=== PATIENT | male | born 1980 | race Caucasian/White ===

== ENCOUNTER → 2016-12-11 | Outpatient (CLI) | payer SELFPAY ==
--- NOTE | 2016-12-11 18:15 | RAD ---
PROCEDURE: Foot,Left 3 Views CLINICAL HISTORY: FOOT PAIN INDICATION: Left foot pain COMPARISON: None . TECHNIQUE: 3.0 Views of the left foot were done. FINDINGS: There is no evidence of acute fractures or dislocation involving the bones of the left foot. There is no evidence of any periosteal reactions. There is mild degenerative change at the level of the first metatarsophalangeal joint. There is a tiny plantar calcaneal spur. There is intact calcification at the insertion site of the Achilles tendon the posterior calcaneus There is no evidence of bony tarsal coalition. The soft tissues are radiographically unremarkable. There is no visualization of any radiopaque foreign bodies in the visualized soft tissues. IMPRESSION: There is mild degenerative change at the level of the first metatarsophalangeal joint. There is a tiny plantar calcaneal spur. Place of interpretation: [id number]. Electronically signed by: Leo Lazo MD 12/11/2016 6:14 PM INSURANCE PROCESSOR
== END | disposition home or self-care (01) ==
LOC: RAD 17:45
PROVIDERS: ATTEND Nurse Practitioner Family
DX: M79.672 Pain in left foot (principal)

== ENCOUNTER 2018-04-30 14:10 | Emergency (ER) | payer SELFPAY ==
--- NOTE | 2018-04-30 14:23 | ED.PDOC ---
History of Present Illness - General Chief Complaint: Syncope/Near Syncope Stated Complaint: syncope Time Seen by Provider: 04/30/18 14:17 Source: patient - History of Present Illness Initial Comments: HE IS BROUGHT BY AMBULANCE AFTER HE PASSED OUT WHILE DRIVING. HE FELT LIGHTHEADED WEAK AND THEN VOMITED IN THE CAR. HE VOICES HE WAS CONFUSED AND SOME BYSTANDER CAME AND OFFERED HIM A SPORT DRINK BUT HE WAS SO WEAK HE COULDN' T EVEN GRAB THE DRINK. HE HAS A MILD COLLISION AGAINST A GAS METER. HE HAS NO HISTORY OF SEIZURES. HE ALSO VOICES THAT HE WAS WORKING IN A BUILDING THAT WAS HOT. Timing/Prior Episodes: no prior history Precipitating Factors: confusion, lightheadedness, nausea Context: other - HE WAS DRIVING Loss of Consciousness: brief (seconds) Current Symptoms: back to normal - QUESTIONABLE IF HE URINATED ON HOMSELF. Allergies/Adverse Reactions: Allergies NO KNOWN ALLERGY Allergy (Verified 09/21/16 12:21) Home Medications: Ambulatory Orders Lisinopril 20 mg PO DAILY 04/30/18 Testosterone [EC-Rx Testosterone 10%] 10 % TD BID 04/30/18 Review of Systems - Review of Systems Constitutional: States: no symptoms reported, malaise, weakness EENTM: States: no symptoms reported Respiratory: States: no symptoms reported Cardiology: States: no symptoms reported Gastrointestinal/Abdominal: States: vomiting Genitourinary: States: no symptoms reported Musculoskeletal: States: no symptoms reported Skin: States: no symptoms reported Neurological: States: other - SYNCOPE, CANNOT BE REASSURED IF HE HAD A SEIZURE OR NOT. Endocrine: States: no symptoms reported Hematologic/Lymphatic: States: no symptoms reported Past Medical History (General) - Patient Medical History Hx Stroke: No Hx Congestive Heart Failure: No Hx Hypertension: Yes Hx Diabetes: No Hx Gastroesophageal Reflux: Yes - Vaccination History Hx Tetanus, Diphtheria Vaccination: Yes Hx Influenza Vaccination: No Hx Pneumococcal Vaccination: No - Social History Hx Tobacco Use: Yes Hx Alcohol Use: Yes - Female History Patient : No Physical Exam - Physical Exam General Appearance: Alert, Well Developed, Well Groomed, Well Hydrated, Well Nourished Eyes, Ears, Nose, Throat Exam: PERRL/EOMI, normal ENT inspection, TMs normal, pharynx normal Neck: non-tender, full range of motion, supple, normal inspection Cardiovascular/Respiratory: regular rate, rhythm, normal peripheral pulses, no JVD, normal breath sounds Gastrointestinal/Abdominal: normal bowel sounds, non tender, soft, no organomegaly, no pulsatile mass Back Exam: normal inspection, no CVA tenderness Extremity: normal range of motion, non-tender 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 THREE LITERS OF FLUIDS HAVE BEEN GIVEN. HE FEELS BETTER. THE CT HEAD IS NORMAL. I HAVE TALKED TO THE PATIENT AND EXTENSIVELY. MOST LIKELY WE ARE DEALING WITH HEAT EXHAUSTION AND SYNCOPE BUT I CANNOT EXCLUDE THIS BEING A SEIZURE. IF THIS OCCURS AGAIN HE WILL NEED TO BE RECHECKED. - Results/Orders Results/Orders: HR OF 85 NM INTERVAL OF 158, QRS OF 114, QTC OF 418, AXES OF 34 DEGREES. IMPRESSION: SINUS RYHTHM, NO ACUTE INJURY PATTERN. Departure - Departure Clinical Impression: Fluid volume depletion Syncope Qualifiers: Syncope type: heat syncope Encounter type: initial encounter Qualified Code(s) : T67.1XXA - Heat syncope, initial encounter Heat exhaustion Qualifiers: Encounter type: initial encounter Qualified Code(s): T67.5XXA - Heat exhaustion , unspecified, initial encounter Time of Disposition: 17:09 Disposition: Discharge to Home or Self Care Departure Forms: ED Discharge - Pt. Copy, Patient Portal Self Enrollment Instructions: DI for Syncope in Adults (Fainting), Heat Exhaustion and Heat Stroke (DC) Referrals: GUIDO TENORIO IV ASSISTANT FINANCIAL ACCOUNTANT [Primary Care Provider] - 1-2 Weeks Home Medications: Ambulatory Orders Lisinopril 20 mg PO DAILY 04/30/18 Testosterone [EC-Rx Testosterone 10%] 10 % TD BID 04/30/18 Additional Instructions: STAY IN A COOL SHADED AREA AND DRINK EXTRA FLUIDS FOR THE NEXT 24 HRS.
[2018-04-30] MEDS ORDERED: SODIUM CHLORIDE 0.9% 1000ML 1,000 ML IVS ONE ×2 (14:27→14:41)
--- NOTE | 2018-04-30 15:07 | CT ---
EXAM DESCRIPTION: Head CLINICAL HISTORY: SYNCOPE VS SEIZURE COMPARISON: 09/21/2016 TECHNIQUE: Multiple axial images of the head without contrast. Multiplanar reformatted images. This exam was performed according to our departmental dose-optimization program, which includes automated exposure control, adjustment of the mA and/or kV according to patient size and/or use of iterative reconstruction technique. FINDINGS: There is no CT evidence of intracranial hemorrhage, mass effect, or large territory infarction. The brain parenchyma and ventricles are normal. There are no abnormal extra-axial fluid collections. Vascular structures are unremarkable. There is no acute calvarial defect. The visualized paranasal sinuses and the mastoids are clear. IMPRESSION: No CT evidence of an acute intracranial abnormality. Consider follow-up MRI if symptoms persist. Electronically signed by: Simón Herrmann MD 04/30/2018 3:06 PM CDT
[2018-04-30 17:26] VITALS: O2SAT 99
[2018-04-30 17:28] VITALS: BP 134/76; TEMP 97.8
== END 2018-04-30 17:20 | disposition home or self-care (01) ==
LOC: ER 14:10
DX: T67.1XXA Heat syncope, initial encounter (principal); T67.5XXA Heat exhaustion, unspecified, initial encounter; I10 Essential (primary) hypertension; K21.9 Gastro-esophageal reflux disease without esophagitis; Z79.899 Other long term (current) drug therapy; W92.XXXA Exposure to excessive heat of man-made origin, initial encounter; Y92.89 Other specified places as the place of occurrence of the external cause
CPT/HCPCS: 36415; 36416; 70450; 80053; 82948; 85025; 93005; J7030